=== PATIENT | female | born 1980 | race Two or more races ===

== ENCOUNTER 2022-06-08 05:55 | Day surgery (SDC) | payer OTHER ==
[~2022-06-08] VITALS: Ht 160 cm; Wt 82.6 kg
[~2022-06-08 05:55] MED LIST: PROBIOTIC1 EAC1 PO
[2022-06-08] MEDS ORDERED: MACROBID 100 M100 MG PO ×2 (09:59)
[2022-06-08] MEDS ORDERED: ULTRACET PO ×2 (10:00)
== END 2022-06-08 14:30 | disposition home or self-care (01) ==
LOC: CIR.AMB 05:55
PROVIDERS: ATTEND Obstetrics & Gynecology Gynecology
DX: N39.3 Stress incontinence (female) (male) (principal); N36.41 Hypermobility of urethra; I10 Essential (primary) hypertension
CPT/HCPCS: 57288; C1781

== ENCOUNTER 2022-06-11 09:36 | Emergency (ER) | payer OTHER ==
[~2022-06-11] VITALS: Ht 160 cm; Wt 82.6 kg
[~2022-06-11 09:36] MED LIST changes: +MACROBID 100 M100 MG PO; +ULTRACET PO
== END 2022-06-11 14:51 | disposition home or self-care (01) ==
LOC: ER 09:36
DX: R51.9 Headache, unspecified (principal)